=== PATIENT | female | born 1950 | race American Indian/Alaskan Native ===

== ENCOUNTER 2019-05-15 15:17 | Emergency (ER) | payer MEDICARE ==
--- NOTE | 2019-05-15 17:07 | Emergency Department Report ---
Blank Doc - Documentation Documentation: 69-year-old female that presents with generlized body aches. This initial assessment/diagnostic orders/clinical plan/treatment(s) is/are subject to change based on patient's health status, clinical progression and re- assessment by fellow clinical providers in the ED. Further treatment and workup at subsequent clinical providers discretion. Patient/guardians urged not to elope from the ED as their condition may be serious if not clinically assessed and managed. Initial orders include: 1- Patient sent to MAIN ED for further evaluation and treatment 2- labs 3- UA
[2019-05-15 17:18] VITALS: BP 152/45
[2019-05-15 17:50] LABS: Basophils % (Auto) 0.4 % (0.0-1.8); Eosinophils % (Auto) 0.6 % (0.0-4.3); Hematocrit 43.2 % (30.3-42.9); Hemoglobin 13.9 gm/dl (10.1-14.3); Lymphocytes # (Auto) 1.7 K/mm3 (1.2-5.4); Lymphocytes % (Auto) 25.7 % (13.4-35.0); Mean Corpuscular HGB Conc 32 % (30-34); Mean Corpuscular Volume 91 fl (79-97); Monocytes # (Auto) 0.4 K/mm3 (0.0-0.8); Platelet Count 151 K/mm3 (140-440); Red Blood Count 4.72 M/mm3 (3.65-5.03); Red Cell Distribution Width 14.6 % (13.2-15.2)
[2019-05-15 18:20] LABS: Alanine Aminotransferase 19 units/L (7-56); Albumin 4.3 g/dL (3.9-5); BUN/Creatinine Ratio 27; Blood Urea Nitrogen 19 mg/dL (7-17); Calcium 10.5 mg/dL (8.4-10.2); Hemolysis Index 39
[2019-05-15 19:17] LABS: Bilirubin,Urine NEG (Negative); Blood,Urine MOD (Negative); Color,Urine Straw (Yellow); Hyaline Casts,Urine 1 /LPF; Mucus,Urine FEW /HPF; Urobilinogen,Urine < 2.0 mg/dL (<2.0)
[2019-05-15] MEDS ORDERED: ACETAMINOPHEN 500 MG TAB PO ONE (20:12)
--- NOTE | 2019-05-15 20:20 | Emergency Department Report ---
ED General Adult HPI - General Chief complaint: Pain General Stated complaint: BODY PAIN Time Seen by Provider: 05/15/19 17:05 Source: patient Mode of arrival: Ambulatory Limitations: No Limitations - History of Present Illness Initial comments: Ms. Catalan is a 69 y/o known aaf with hx of GERD, HTN, ND, DMII, CABG 69-year-old female that presents with generlized body aches and malaise x 1 month. states non productive cough, bodyache, sore throat, no fever, no n/v , no diaphoresis,no sob, no cp. PT followed by [facility] [place], but cannot see pcp for 1 week . Onset/Timin -: month(s) Location: back, upper extremity, lower extremity Radiation: non-radiation Severity scale (0 -10): 4 Quality: aching Consistency: constant Improves with: none Worsens with: movement, other (activity ) Associated Symptoms: cough, malaise. denies: confusion, chest pain, fever/chills, headaches, nausea/vomiting, shortness of breath Treatments Prior to Arrival: none - Related Data Allergies Allergy/AdvReac Type Severity Reaction Status Date / Time acetaminophen [From Tylox] Allergy Unknown Verified 05/15/19 17:19 Iodine and Iodide Containing Allergy Rash Verified 05/15/19 15:22 Produc oxycodone [From Tylox] Allergy Unknown Verified 05/15/19 17:19 shellfish derived Allergy Unknown Verified 05/15/19 17:19 ED Review of Systems ROS: Stated complaint: BODY PAIN Other details as noted in HPI Constitutional: malaise. denies: chills, fever Eyes: denies: eye pain, eye discharge, vision change ENT: throat pain Respiratory: cough Cardiovascular: denies: chest pain, palpitations, dyspnea on exertion, orthopnea, edema Endocrine: no symptoms reported Gastrointestinal: denies: abdominal pain, nausea, vomiting, diarrhea Genitourinary: denies: urgency, dysuria, frequency, hematuria, discharge Musculoskeletal: back pain, arthralgia, myalgia Skin: denies: rash, lesions Neurological: denies: headache, weakness, paresthesias, vertigo Psychiatric: anxiety Hematological/Lymphatic: denies: easy bleeding, easy bruising ED Past Medical Hx - Past Medical History Previous Medical History?: Yes Hx Diabetes: Yes Hx GERD: Yes Additional medical history: Cardiac condition. - Surgical History Hx Open Heart Surgery: Yes - Social History Smoking Status: Never Smoker Substance Use Type: None ED Physical Exam - General Limitations: No Limitations General appearance: alert, in no apparent distress - Head Head exam: Present: normocephalic, normal inspection - Eye Eye exam: Present: normal appearance, PERRL, EOMI Pupils: Present: normal accommodation - ENT ENT exam: Present: normal exam, normal orophraynx, mucous membranes moist, TM's normal bilaterally, normal external ear exam - Neck Neck exam: Present: normal inspection, full ROM. Absent: tenderness, lymphadenopathy, thyromegaly - Respiratory Respiratory exam: Present: normal lung sounds bilaterally. Absent: respiratory distress, wheezes, stridor, chest wall tenderness - Cardiovascular Cardiovascular Exam: Present: regular rate, normal rhythm, normal heart sounds. Absent: systolic murmur, diastolic murmur, rubs, gallop - GI/Abdominal GI/Abdominal exam: Present: soft, normal bowel sounds. Absent: distended, tenderness, guarding, rebound, rigid, bruit, hernia - Rectal Rectal exam: Present: deferred - Extremities Exam Extremities exam: Present: normal inspection, full ROM, normal capillary refill, other (generalized aches ). Absent: tenderness, pedal edema, joint swelling - Back Exam Back exam: Present: normal inspection, full ROM. Absent: tenderness, CVA tenderness (R), CVA tenderness (L), muscle spasm, paraspinal tenderness, vertebral tenderness, rash noted, other - Neurological Exam Neurological exam: Present: alert, oriented X3, CN II-XII intact, normal gait, reflexes normal. Absent: motor sensory deficit - Psychiatric Psychiatric exam: Present: normal affect, normal mood - Skin Skin exam: Present: warm, dry, intact, normal color. Absent: rash ED Course Vital Signs 05/15/19 17:17 Temperature 97.6 F Pulse Rate 67 Respiratory 18 Rate Blood Pressure 152/45 O2 Sat by Pulse 98 Oximetry ED Medical Decision Making - Lab Data Result diagrams: 05/15/19 17:34 05/15/19 17:34 - Radiology Data Radiology results: report reviewed, image reviewed CXR normal in infiltrates no opacities - Medical Decision Making pt advises no pain at this time she declines to await second troponin, this is not likely cardiac pain , there is no cp, no sob, no n/v, no diaphoresis,edema, no jvd, she is a/o x 3, ambulatory with steady gait, and nad, all diagnostics are normal, trace luek, on ua, plan dc to home follow up with pcp tomorrow as scheduled, pt dc'd instable condition at this time, Critical care attestation.: If time is entered above; I have spent that time in minutes in the direct care of this critically ill patient, excluding procedure time. ED Disposition Clinical Impression: Body aches Pharyngitis Qualifiers: Pharyngitis/tonsillitis etiology: unspecified etiology Qualified Code(s): J02.9 - Acute pharyngitis, unspecified Disposition: DC-01 TO HOME OR SELFCARE Is pt being admited?: No Does the pt Need Aspirin: No Condition: Stable Instructions: Musculoskeletal Pain (ED), Pharyngitis (ED) Additional Instructions: take pain medications as prescribed by primary care doctor, follow up with your primary care doctor at [facility] as scheduled. Referrals: PRIMARY CARE, [Primary Care Provider] - 3-5 Days Time of Disposition: 21:43
--- NOTE | 2019-05-15 21:02 | XRay Report ---
CHEST 2 VIEW INDICATION / CLINICAL INFORMATION: bodayaches malaise. COMPARISON: None available. FINDINGS: SUPPORT DEVICES: None. 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 No pneumothorax. ADDITIONAL FINDINGS: No significant additional findings. IMPRESSION: 1. No acute findings. Signer Name: Foster Wright MD Signed: 05/15/2019 8:57 PM Workstation Name: [id number]
== END 2019-05-15 21:45 | disposition home or self-care (01) ==
LOC: ED 15:17
DX: J02.9 Acute pharyngitis, unspecified (principal); M54.9 Dorsalgia, unspecified; E11.8 Type 2 diabetes mellitus with unspecified complications; K21.9 Gastro-esophageal reflux disease without esophagitis; Z88.8 Allergy status to other drugs, medicaments and biological substances; Z91.013 Allergy to seafood; Z98.890 Other specified postprocedural states
CPT/HCPCS: 36415; 71046; 80053; 81001; 82550; 85025